=== PATIENT | female | born 1965 | race Caucasian/White ===

== ENCOUNTER 2019-08-04 11:46 | Emergency (ER) | payer MEDICAID, SELFPAY ==
[2019-08-04 11:49] VITALS: BP 149/95; PULSE 83; RESP 17; TEMP 36.9; O2SAT 100; BMI 18.6
--- NOTE | 2019-08-04 12:02 | RAD_ITS ---
STUDY: X-RAY CHEST REASON FOR EXAM: Female, 54 years old. Pat states fever today, increased sob due to pain to rt shoulder, neck and back. No known recent injury. TECHNIQUE: PA and lateral views of the chest. COMPARISON: None. FINDINGS: EKG electrodes are seen. Hyperinflation. The lungs are clear There is no demonstrated pleural abnormality. Normal size heart. Normal mediastinum and laura. Normal visualized pulmonary arteries. Normal visualized aortic arch and descending thoracic aorta. Normal visualized thoracic spine. Normal visualized ribs, clavicles, and shoulders. There is no demonstrated abnormality of the visualized soft tissue structures of the upper abdomen. RAD/Chest PA and Lateral IMPRESSION: Hyperinflation. The lungs are clear. Electronically Signed: Tommy Whitlock, at 12:55 EDT , Service support ,
--- NOTE | 2019-08-04 12:07 | NURSING ---
NO OLD EKGS
[2019-08-04 12:19] LABS: Absolute Lymphocyte Count 2.28 X10^3/uL (0.83-4.51); Absolute Neutrophil Count 4.4 X10^3/uL (2.0-7.7); Basophil# 0.03 X10^3/uL; Basophil% 0.4 % (0-1); Eosinophil# 0.01 X10^3/uL; Eosinophils% 0.1 % (0-5); Hematocrit 38.6 % (37-47); Hemoglobin 12.8 g/dL (12.0-15.0); Lymphocyte # 2.28 X10^3/ul (4.0); Lymphocyte % 32.1 % (19-41); Mean Corp Hgb Conc 33.2 g/dL (32-36); Mean Corpuscular Hgb 31.5 pg (27.0-32.0); Mean Corpuscular Volume 95.1 fL (81-99); Mean Platelet Vol. 8.8 fl (6.2-12.0); Monocyte# 0.42 X10^3/uL; Monocyte% 5.9 % (0-10); NRBC Flagged by Analyzer 0 % (0-5); Neutrophil # 4.35 X10^3/uL (2.7-7.7); Neutrophil % 61.2 % (47-70); Platelet Count 267 K/mm3 (150-450); RBC Distribution Width CV 12.4 % (11.6-14.6); RBC Distribution Width SD 43.5 fl (35.1-43.9); Red Blood Count 4.06 M/mm3 (4.2-5.4); White Blood Count 7.1 K/mm3 (4.4-11.0)
--- NOTE | 2019-08-04 12:21 | ED.DCSUM_ITS ---
History of Present Illness Chief Complaint: Fever Narrative: Patient presenting for evaluation secondary to neck pain, shoulder pain, chest pain. Patient reports that she has had a history of having right shoulder pain in the past. This was associated with a fall with injury. Patient states that recently she has had a change in the character and severity of that pain, and now the pain is traveling between both of her shoulder blades and up into her neck. Patient states that she does not have any radiation of the pain down her arms, no numbness or weakness. She reports that today she is having some pain that is going across her chest. Patient states that the pain is making her feel short of breath as if she cannot take a deep breath. She took some Tylenol without any specific relief. Patient reports that she had a low-grade temperature today, 99 at urgent care, and was recommended to come to the [facility] because they could not do anything for me and were worried about coronavirus. Patient denies any cough, generalized body aches, nausea, vomiting, or diarrhea. She is otherwise healthy, no history of cardiovascular disease. No history of aneurysm, connective tissue disease, or DVT or PE. Past Medical History - Allergies and Home Meds Allergies/Adverse Reactions: Allergies codeine Allergy (Verified 08/04/19 11:48) Vomiting Primary Care Physician: Zachary Subramanian MD [Primary Care Provider] - Prior records reviewed: Yes Past Medical History: None Smoking Status: Unknown if ever smoked Review of Systems All systems negative except as indicated General: Denies: Chills, Fever, Sweats Eyes: Denies: Visual changes - bilaterally, Diplopia ENT: Denies: Rhinorrhea, Sore throat Cardiovascular: Reports: Chest pain Respiratory: Reports: Dyspnea Gastrointestinal: Denies: Abdominal pain, Nausea, Vomiting, Diarrhea, Melena, Hematochezia Genitourinary: Denies: Dysuria, Hematuria, Frequency Musculoskeletal: Reports: Neck pain, Back pain Skin: Denies: Rash, Wounds Neurological: Denies: Headache, Weakness, Numbness Physical Exam Vital Signs/Narrative: Vital Signs Temp Pulse Resp BP Pulse Ox 08/04/19 11:49 98.4 F 83 17 149/95 H 100 Inital Vital Signs reviewed: Yes General: Well nourished, Well developed, No Acute Distress Head: Normocephalic, Atraumatic Eyes: Perrl, EOMI ENT: Moist mucous membranes, No rhinorrhea Neck: Supple, - - Diffuse tenderness to even light palpation of the midline C- spine, bilateral paraspinal musculature, bilateral shoulders. No limited range of motion of the shoulders. No warmth or erythema. No skin changes. 5 out of 5 strength at the shoulder elbow wrist and hand with normal sensation over all dermatomes. 3+ brachioradialis biceps and triceps reflexes with normal distal pulses. Cardiovascular: Regular rate, Regular rhythm, No murmurs Respiratory: No distress, CTA bilaterally, Chest tenderness - Mild anterior Abdomen: Soft, Nontender, Nondistended, Normal bowel sounds Back: Nontender, Normal Inspection Extremities: Nontender, No edema Skin: Normal color, No rash Neurological: Alert, Oriented x3, Cranial nerves II-XII grossly intact, Normal Strength, Normal Sensation Psychological: Normal affect, Normal Mood Diagnostic/Tx/Re-eval Clinical Impression(s) from Imaging Studies Chest X-Ray 08/04/19 12:02 IMPRESSION: Hyperinflation. The lungs are clear. Electronically Signed: Tommy Kamlesh, at 12:55 EDT , Service support , Cervical Spine X-Ray 08/04/19 12:43 IMPRESSION: Straightening of the normal cervical lordosis. Spondylosis and disc space narrowing at the C5-C6 level. Electronically Signed: Tommy Whitlock, at 12:56 EDT , Service support , Laboratory Data 08/04/19 08/04/19 12:16 12:16 WBC 7.1 RBC 4.06 L Hgb 12.8 Hct 38.6 MCV 95.1 MCH 31.5 MCHC 33.2 RDW Std Deviation 43.5 RDW Coeff of Alondra 12.4 Plt Count 267 MPV 8.8 Immature Gran % (Auto) 0.300 Neut % (Auto) 61.2 Lymph % (Auto) 32.1 [place] % (Auto) 5.9 Eos % (Auto) 0.1 Baso % (Auto) 0.4 Absolute Neuts (auto) 4.4 Absolute Lymphs (auto) 2.28 Nucleated RBC % 0 Sodium 141 Potassium 3.5 Chloride 110 H Carbon Dioxide 27.0 Anion Gap 4 L BUN 15 Creatinine 0.71 Estim Creat Clear Calc 60.48 Est GFR (MDRD) Af Amer 110 Est GFR (MDRD) Non-Af 91 BUN/Creatinine Ratio 21.2 H Glucose 97 Calcium 9.1 Troponin I < 0.015 - EKG Initial EKG Interpretation: - - Normal sinus rhythm at [address] segments normal T waves normal DC and QTc intervals no evidence of acute ischemia or arrhythmia - Medical Decision Making Patient presented secondary to neck pain shoulder pain and chest pain. Work-up was obtained. EKG was found to be unremarkable. CBC chemistry troponin unremarkable. Chest x-ray shows no acute pathology by my personal review as well as radiology. Cervical spine x-ray demonstrates some arthritis per radiology review. Patient had improvement of her pain with dosing of Toradol as well as Flexeril. Patient's pain is likely secondary to arthritis at this point. Patient will be discharged with supportive treatment. ED Disposition - Plan for ED Patient: Disposition: Home or Assisted Living Diagnosis: Cervical arthritis Instructions: ED Neck Pain Prescriptions: cycloBENZAPRine HCl [Flexeril] 10 mg PO TID PRN #20 tab PRN Reason: Muscle Spasm Prescription Printed Lidocaine [Lidocaine Pain Relief] 1 ea TP DAILY #20 adh..patch Prescription Printed Referrals: Zachary Subramanian MD [Primary Care Provider] - Keep [facility] appointment
[2019-08-04 12:25] VITALS: BP 142/88; PULSE 62; RESP 12; O2SAT 100
[2019-08-04] MEDS: cycloBENZAPRine HCl 10 MG Tablet PO (12:31)
[2019-08-04] MEDS: Ketorolac 15 MG/ML Vial IV (12:31)
[2019-08-04 12:37] LABS: Anion Gap 4 (5-15); BUN 15 mg/dL (7-18); BUN/Creat Ratio 21.2 RATIO (10-20); Calcium,Total 9.1 mg/dL (8.5-10.1); Chloride 110 mmol/L (98-107); Creatinine, Serum 0.71 mg/dL (0.55-1.02); EST Glomerular Filtration Rate 91 mL/min (>60); Est Glom Filt Rate - Afr Amer 110 mL/min (>60); Estimated Creatinine Clearance 60.48 ml/min; Glucose 97 mg/dL (74-106); Potassium 3.5 mmol/L (3.5-5.1); Sodium Level 141 mmol/L (136-145)
--- NOTE | 2019-08-04 12:43 | RAD_ITS ---
STUDY: X-RAY - CERVICAL SPINE REASON FOR EXAM: Female, 54 years old. Pat states fever today, increased sob due to pain to rt shoulder, neck and back. No known recent injury. TECHNIQUE: 3 view(s) of the cervical spine were obtained. COMPARISON: None FINDINGS: Normal anterior atlantoaxial articulation. Normal odontoid process. There is straightening of the normal cervical lordosis. Endplate spondylosis at the C5-C6 and C7 levels. Moderate degree of disc space narrowing at the C5-C6 level. Normal visualized intervertebral neuroforamina. There are atherosclerotic vascular calcifications of the carotid arteries. RAD/Cerv Spine 2 or 3 Views IMPRESSION: Straightening of the normal cervical lordosis. Spondylosis and disc space narrowing at the C5-C6 level. Electronically Signed: Tommy Whitlock, at 12:56 EDT , Service support ,
[2019-08-04 14:17] VITALS: BP 132/80; PULSE 60; RESP 14; O2SAT 100
== END 2019-08-04 14:18 | disposition home or self-care (01) ==
PROVIDERS: Emergency Provider Emergency Medicine; PCP Family Medicine
DX: M47.812 Spondylosis without myelopathy or radiculopathy, cervical region (principal); R07.9 Chest pain, unspecified; R06.02 Shortness of breath; Z79.899 Other long term (current) drug therapy
CPT/HCPCS: 71046; 72040; 80048; 84484; 85025; 93005; 96374; 99284; A4216

== ENCOUNTER 2021-11-22 11:21 | Emergency (ER) | payer MEDICAID, SELFPAY ==
[2021-11-22 11:22] VITALS: BP 132/98; PULSE 119; RESP 16; TEMP 36.1; O2SAT 100; BMI 16.8
--- NOTE | 2021-11-22 14:10 | CT_ITS ---
STUDY: CT LUMBAR SPINE WITHOUT CONTRAST REASON FOR EXAM: Female, 56 years old. Mid to low back pain. Radiation to the left leg. RADIATION DOSAGE (If Supplied By Facility): CTDIvol = ( 13.82 ) mGy, DLP = ( 384.19 ) mGycm TECHNIQUE: The patient was scanned in a multi detector CT scanner. High resolution transaxial imaging was performed. Images were obtained from L1 to S1 level. Sagittal and coronal images were reconstructed. Individualized dose optimization techniques were used for this CT. COMPARISON: None FINDINGS: There is straightening of the normal lumbar lordosis. There is no substantial scoliosis. Normal vertebrae of the lumbar spine. L1-2: Mild degree of disc space narrowing. Anterior spondylosis. No significant stenosis seen. L2-3: Normal endplates. Normal disc height and morphology. Normal bilateral facet joints. Normal central canal and bilateral lateral recesses. Normal bilateral intervertebral neural foramina. L3-4: Anterior spondylosis. No significant stenosis seen. L4-5: Mild degree of disc space narrowing. Spondylosis. Mild degree of diffuse posterior disc bulge. No significant stenosis seen. L5-S1: Mild degree of disc space narrowing. Mild degree of diffuse posterior disc bulge. No evidence of neural foraminal stenosis. Normal visualized paraspinous soft tissue structures. CT/Spine Lumbar without Contrast IMPRESSION: Multilevel degenerative changes, as described above. Electronically Signed: Tommy Whitlock MD at 14:47 EDT ,
[2021-11-22] MEDS: Ketorolac 30 MG/ML Syringe IM (14:14)
--- NOTE | 2021-11-22 15:05 | ED.VIS.BACK ---
HPI History of Present Illness Chief Complaint: Back Informant: patient Narrative Narrative: Worsening nontraumatic back pain over the past few days. No direct injuries. Works constantly for 8 hours of lifting up to 25 pounds. Pain radiates to her buttocks down her left leg behind the knee. No loss of bowel or bladder control. History of degenerative changes in her cervical spine along with right rotator cuff injury with a small tear. She had muscle relaxer she tried however flared of her migraines. She is currently on naproxen twice a day. Denies urinary symptoms. No symptoms like this in her back previously. [facility] Medical History Arthritis Degenerative disc disease Home Medications cyclobenzaprine 10 mg tablet 10 mg PO TID PRN Muscle Spasm #20 tabs 08/04/19 [Rx Last Taken Unknown] lidocaine 4 % topical patch 1 ea TP DAILY ##20 08/04/19 [Rx Last Taken Unknown] gabapentin 300 mg capsule 300 mg PO QHS #30 caps 11/22/21 [Rx Last Taken Unknown] Allergy/AdvReac Type Severity Reaction Status Date / Time codeine Allergy Vomiting Verified 11/22/21 11:21 Social History Smoking Status: Former smoker ROS ROS ED Constitutional Constitutional ED: Denies chills, fever(s) or sweats Eyes Eyes: Denies change in vision ENT ENT ED: Denies dysphagia or sore throat Cardiovascular Cardiovascular: Denies chest pain, leg edema, palpitations or racing heartbeat Respiratory/Chest Respiratory/Chest: Denies cough, dyspnea or dyspnea on exertion Gastrointestinal Gastrointestinal: Denies abdominal pain, diarrhea, nausea or vomiting Genitourinary Genitourinary ED: Denies dysuria, hematuria or urinary frequency Musculoskeletal Musculoskeletal: Reports back pain; Denies extremity pain or neck pain Integumentary Denies rash or wounds Neurologic Neurologic: Denies headache(s), paresthesias or weakness EXAM Physical Exam Const Vital Signs: 11/22/21 11:22 Temperature 97.0 F L Temperature Source Temporal Pulse Rate 119 H Respiratory Rate 16 Blood Pressure 132/98 H Blood Pressure Mean 109 Pulse Ox 100 Oxygen Delivery Method Room Air Positive well nourished and well developed Constitutional Narrative: Uncomfortable, nontoxic General Appearance ED: well developed HEENT Reports moist mucous membranes normocephalic and atraumatic Eyes PERRL, EOMs intact bilaterally and conjunctivae normal General Eye ED: Yes normal appearance of both eyes Neck no lymphadenopathy and supple General: Negative for tenderness Chest Wall Chest: Negative for tenderness Resp normal respiratory effort and normal air movement Effort and Inspection: symmetric chest movement; Negative for respiratory distress Cardio regular rate, regular rhythm and no murmurs Peripheral Pulses: pulses 2+ throughout GI normal to inspection, nondistended, normoactive bowel sounds and non-tender Palpation: Negative for guarding or rebound tenderness present Back/Spine no CVA tenderness Back/Spine Narrative: Lower lumbar tenderness. Straight leg test negative bilaterally. 2+ patellar reflex bilaterally. Extremity normal to inspection General Extremety ED: Negative for edema or tenderness General Extremity: Negative for edema Neuro oriented x3 and no sensory deficits noted Sensorium / Orientation: awake and alert Skin no rashes or lesions noted and no wounds MDM MDM MDM Narrative Medical decision making narrative: Patient drove her self. She did not want anything strong. She given IM Toradol. Concern for musculoskeletal pain with radicular symptoms CT lumbar obtained degenerative changes noted mild disc bulge of L4-L5, L5-S1. Discussed with patient she is currently feeling better now back to her chronic neck pain. She is able to ambulate. She has no cauda equina symptoms. She did not like taking her muscle relaxers. She did not want strong pain medicine she is on naproxen's with lidocaine patches. She did agree with starting gabapentin at night for radicular symptoms. She has never seen pain management for treatment in the past. I will refer her to pain management for outpatient evaluation. Work note will be written for couple days. Return precautions otherwise outpatient follow-up. All questions answered. Radiography Diagnostic Testing: Clinical Impression(s) from Imaging Studies Lumbar Spine CT 11/22/21 14:10 IMPRESSION: Multilevel degenerative changes, as described above. Electronically Signed: Tommy Whitlock MD at 14:47 EDT , Discharge Plan Triage Chief Complaint: Back ED Provider: Erik Perez Dx/Rx/DC Orders Clinical Impression: Acute lumbar radiculopathy, Back pain, Sciatica Instructions: ED Sciatica Prescriptions: New gabapentin 300 mg capsule 300 mg PO QHS Qty: 30 0RF No Action cyclobenzaprine 10 MG tablet 10 mg PO TID PRN (Reason: Muscle Spasm) Qty: 20 0RF lidocaine 1 EACH adhesive patch,medicated 1 ea TP DAILY Qty: 20 0RF Primary Care Provider: Zachary Subramanian Referrals: Santos Mcbride MD [Med Staff - Active Staff] - 1-2 Weeks Zachary Subramanian MD [Primary Care Provider] - Activity Restrictions/Additional Instructions: CT lumbar with degenerative changes mild disc bulge L4-L5, L5-S1. Take gabapentin as prescribed. Continue naproxen. Continue lidocaine patches. Follow-up as an outpatient for further management. Disposition Disposition: Home, Self Care Discharge Date/Time: 11/22/21 15:23
== END 2021-11-22 15:23 | disposition home or self-care (01) ==
PROVIDERS: Emergency Provider Emergency Medicine; PCP Family Medicine; Visit Provider Emergency Medicine
DX: M51.16 Intervertebral disc disorders with radiculopathy, lumbar region (principal); M54.2 Cervicalgia; G89.29 Other chronic pain; Z87.891 Personal history of nicotine dependence
CPT/HCPCS: 72131; 96372; 99282